=== PATIENT | male | born 1980 | race Caucasian/White ===

== ENCOUNTER 2021-08-23 09:33 | Emergency (ER) | payer MEDICAID ==
[~2021-08-23] VITALS: Ht 170.2 cm; Wt 75.0 kg
[2021-08-23] MEDS ORDERED: FAMOTIDINE 20MG/2ML VIAL IV STA (11:24)
[2021-08-23] MEDS ORDERED: ONDANSETRON HCL 4MG/2ML INJ IV STA (11:24)
[2021-08-23] MEDS ORDERED: SODIUM CHLORIDE 0.9% 1,000 ML IV ONE (11:30)
[2021-08-23 11:41] LABS: BASOPHILS % 0.5 % (0.0-2.0); EOSINOPHILS % 0.5 % (0.0-5.0); HEMATOCRIT. 44.2 % (42.0-52.0); HEMOGLOBIN. 14.6 g/dL (14.0-18.0); LYMPHOCYTES % 24.7 % (20.0-50.0); MEAN CORPUSCULAR HEMOGLOBIN 27.5 pg (28.0-32.0); MEAN PLATELET VOLUME 9.1 fl (7.4-10.4); MONOCYTES % 11.6 % (2.0-8.0); NEUTROPHILS % 62.7 % (40.0-76.0); PLATELET 163 x1000/uL (130-400); RED BLOOD CELL COUNT 5.32 mill/uL (4.7-6.1); RED CELL DISTRIBUTION WIDTH 13.4 % (11.6-14.6)
[2021-08-23 11:46] LABS: CHLORIDE 103 mEq/L (98-107)
[2021-08-23] MEDS ORDERED: FAMO-135 MT (13:27)
[2021-08-23 14:47] VITALS: BP 160/105
== END 2021-08-23 15:40 | disposition home or self-care (01) ==
LOC: ER 09:33
DX: R10.11 Right upper quadrant pain (principal); R11.10 Vomiting, unspecified; G40.909 Epilepsy, unspecified, not intractable, without status epilepticus; Z87.820 Personal history of traumatic brain injury
CPT/HCPCS: 36415; 76705; 80053; 83690; 84484; 85025; 93005; 96361; 96374; 96375; 99285; J2405; J3490; J7030

== ENCOUNTER 2024-08-27 10:42 | Emergency (ER) | payer MEDICAID ==
[~2024-08-27] VITALS: Ht 172.7 cm; Wt 90.7 kg
[~2024-08-27 10:42] MED LIST: APIX5TAB MT; ATOR20TA MT; DILT120C88 PO; FAMO-135 MT; KEPP500 PO; METO-385 PO
[2024-08-27 10:55] VITALS: BP 184/128; PULSE 80; RESP 16; TEMP 98.3; O2SAT 98
[2024-08-27 12:22] LABS: BASOPHILS % 0.4 % (0.0-2.0); EOSINOPHILS % 0.7 % (0.0-5.0); HEMATOCRIT. 52.3 % (42.0-52.0); HEMOGLOBIN. 16.3 g/dL (14.0-18.0); LYMPHOCYTES % 42.5 % (20.0-50.0); MEAN CORPUSCULAR HEMOGLOBIN 27.1 pg (28.0-32.0); MEAN CORPUSCULAR HGB CONC 31.2 g/dL (31.0-37.0); MEAN CORPUSCULAR VOLUME 86.9 fL (80.0-94.0); NEUTROPHILS % 45.4 % (40.0-76.0); RED BLOOD CELL COUNT 6.02 mill/uL (4.7-6.1); RED CELL DISTRIBUTION WIDTH 13.5 % (11.6-14.6)
[2024-08-27 12:24] LABS: CHLORIDE 104 mEq/L (98-107); SODIUM 137 mEq/L (136-145)
[2024-08-27 12:26] LABS: CALCIUM 9.3 mg/dL (8.7-10.4); CARBON DIOXIDE 27 mEq/L (21-32)
[2024-08-27 12:30] LABS: CREATININE 1.1 mg/dL (0.6-1.3)
[2024-08-27 12:31] LABS: GLUCOSE 89 mg/dL (70-105); UREA NITROGEN BLOOD 13 mg/dL (9-23)
[2024-08-27 12:36] LABS: DIFFERENTIAL COMMENT 1; MEAN PLATELET VOLUME 9.6 fl (7.4-10.4); PLATELET 138 x1000/uL (130-400)
[2024-08-27] MEDS ORDERED: MAGNESIUM/ALUMINUM HYDROXIDE/SIMETHICONE 30ML UDC PO STA (13:07)
[2024-08-27] MEDS ORDERED: ONDANSETRON 4MG ODT PO STA (13:07)
[2024-08-27] MEDS ORDERED: ACETAMINOPHEN 325MG TABLET PO STA (13:07)
[2024-08-27] MEDS ORDERED: FAMOTIDINE 20MG TABLET PO ONE (13:15)
[2024-08-27 13:47] LABS: ALANINE AMINOTRANSFERASE 97 IU/L (10-49); ALBUMIN 4.9 g/dL (3.2-4.8); ASPARTATE AMINOTRANSFERASE 57 IU/L (<34)
[2024-08-27 13:48] LABS: BILIRUBIN DIRECT 0.3 mg/dL (<=3.0); BILIRUBIN TOTAL 1.1 mg/dL (0.1-1.0); PROTEIN TOTAL 8.3 g/dL (6.0-8.3)
[2024-08-27] MEDS ORDERED: ONDA-239 PO (16:42)
[2024-08-27] MEDS ORDERED: FAMOTIDINE 20MG TABLET PO NR (16:45)
[2024-08-27] MEDS ORDERED: ONDANSETRON 4MG ODT PO NR (16:45)
[2024-08-27] MEDS ORDERED: MAGNESIUM/ALUMINUM HYDROXIDE/SIMETHICONE 30ML UDC PO NR (16:45)
[2024-08-27] MEDS ORDERED: ACETAMINOPHEN 325MG TABLET PO NR (16:45)
== END 2024-08-27 16:04 ==
LOC: ER 10:42
DX: R10.12 Left upper quadrant pain (principal); Z79.899 Other long term (current) drug therapy
CPT/HCPCS: 99284; 74176; 80076; 80048; 83690; 85025; 36415; Q0162